=== PATIENT | male | born 1960 | race Caucasian/White ===

== ENCOUNTER 2022-04-08 01:16 | Emergency (ER) | payer SELFPAY ==
[~2022-04-08] VITALS: Ht 182.9 cm; Wt 52.1 kg
[2022-04-08 01:19] VITALS: BP 160/64
== END 2022-04-08 07:00 | disposition left against medical advice (07) ==
LOC: M ED 01:16
DX: Z53.21 Procedure and treatment not carried out due to patient leaving prior to being seen by health care provider (principal)

== ENCOUNTER → 2022-11-01 | Outpatient (CLI) | payer OTHER | LOC: M RAD 11:36 | PROVIDERS: ATTEND Physician Assistant Medical | DX: R80.9 Proteinuria, unspecified (principal); J44.9 Chronic obstructive pulmonary disease, unspecified; F17.210 Nicotine dependence, cigarettes, uncomplicated; R91.1 Solitary pulmonary nodule; N28.1 Cyst of kidney, acquired ==

== ENCOUNTER 2023-03-18 10:18 | Day surgery (SDC) | payer OTHER ==
[~2023-03-18] VITALS: Ht 182.9 cm; Wt 54.0 kg
[~2023-03-18 10:18] MED LIST: NS 1,000 ML IV ONE
[2023-03-18] MEDS ORDERED: LISI5TAB11 PO (10:58)
[2023-03-18] MEDS ORDERED: HYDR-3490 PO (10:58)
[2023-03-18] MEDS ORDERED: ROPI4TAB3 PO (10:58)
[2023-03-18] MEDS ORDERED: ALBU6.7H6 INH (10:58)
[2023-03-18] MEDS ORDERED: LIDOCAINE 2% 100MG/5ML SDV (FOR ANES.) As Ordered ONE (11:48)
[2023-03-18] MEDS ORDERED: propofoL 200 MG/20 ML VIAL As Ordered ONE ×3 (11:48→12:25)
[2023-03-18 13:03] VITALS: BP 122/68
== END 2023-03-18 13:09 | disposition home or self-care (01) ==
LOC: M OPP 10:18
PROVIDERS: ATTEND Internal Medicine Gastroenterology
DX: K57.30 Diverticulosis of large intestine without perforation or abscess without bleeding (principal); K64.4 Residual hemorrhoidal skin tags; K64.8 Other hemorrhoids; D50.9 Iron deficiency anemia, unspecified; K21.00 Gastro-esophageal reflux disease with esophagitis, without bleeding; K25.9 Gastric ulcer, unspecified as acute or chronic, without hemorrhage or perforation; K29.50 Unspecified chronic gastritis without bleeding; K57.10 Diverticulosis of small intestine without perforation or abscess without bleeding

== ENCOUNTER → 2023-12-02 | Outpatient (CLI) | payer OTHER ==
[~2023-12-02] MED LIST changes: +ALBU6.7H6 INH; +CYCL5TAB PO; +HYDR-3490 PO; +LISI5TAB11 PO; -NS 1,000 ML IV ONE; +PANT40TA29 PO; +ROPI4TAB36 PO
[2023-12-02 11:45] LABS: BILIRUBIN,DIRECT 0.2 MG/DL (<0.4); BILIRUBIN,TOTAL 0.6 MG/DL (0.3-1.2); TOTAL PROTEIN 6.9 G/DL (5.7-8.2)
[2023-12-02 11:47] LABS: FOLATE 9.3 NG/ML (>5.4)
== END ==
LOC: M LAB 10:25
PROVIDERS: ATTEND Internal Medicine Gastroenterology
DX: K29.50 Unspecified chronic gastritis without bleeding (principal)

== ENCOUNTER 2023-12-15 12:50 | Day surgery (SDC) | payer OTHER ==
[~2023-12-15] VITALS: Ht 15.2 cm; Wt 59.2 kg
[~2023-12-15 12:50] MED LIST changes: +NS 1,000 ML IV ONE
[2023-12-15] MEDS ORDERED: ALBUTEROL SULFATE 2.5MG/0.5ML INH NEB SOLN INH STA (15:07)
[2023-12-15] MEDS ORDERED: fentaNYL 100 MCG/2 ML INJECTION As Ordered ONE (15:23)
[2023-12-15] MEDS ORDERED: LIDOCAINE 2% 100MG/5ML SDV (FOR ANES.) As Ordered ONE (15:23)
[2023-12-15] MEDS ORDERED: propofoL 200 MG/20 ML VIAL As Ordered ONE (15:23)
[2023-12-15 15:55] VITALS: TEMP 97.4
[2023-12-15 16:11] VITALS: BP 164/82; O2SAT 100
== END 2023-12-15 16:46 | disposition home or self-care (01) ==
LOC: M OPP 12:50
PROVIDERS: ATTEND Internal Medicine Gastroenterology
DX: K21.00 Gastro-esophageal reflux disease with esophagitis, without bleeding (principal); K31.89 Other diseases of stomach and duodenum; K29.70 Gastritis, unspecified, without bleeding; F17.200 Nicotine dependence, unspecified, uncomplicated; Z79.51 Long term (current) use of inhaled steroids; Z79.891 Long term (current) use of opiate analgesic; Z79.899 Other long term (current) drug therapy
CPT/HCPCS: 43239; 88305; J3010

== ENCOUNTER → 2024-02-04 | Outpatient (CLI) | payer OTHER ==
[~2024-02-04] MED LIST changes: +ISOVUE-370 76% 100ML VIAL As Ordered ONE; -NS 1,000 ML IV ONE
== END ==
LOC: M RAD 11:59
PROVIDERS: ATTEND Nurse Practitioner Family
DX: R31.1 Benign essential microscopic hematuria (principal)
CPT/HCPCS: 74178; Q9967

== ENCOUNTER 2024-05-01 16:51 | Emergency (ER) | payer OTHER ==
[~2024-05-01] VITALS: Ht 182.9 cm; Wt 55.9 kg
[~2024-05-01 16:51] MED LIST changes: -ISOVUE-370 76% 100ML VIAL As Ordered ONE
[2024-05-01] MEDS: ONDANSETRON 4MG 2ML VIAL IV ONE (18:26)
[2024-05-01] MEDS: MORPHINE 4 MG/ML 1ML VIAL IV ONE (18:27)
[2024-05-01] MEDS ORDERED: MIRA3350 PO (19:16)
[2024-05-01] MEDS ORDERED: PERC5TAB12 PO (19:16)
[2024-05-01 19:20] VITALS: BP 141/66; TEMP 97.6; O2SAT 97
[2024-05-01] MEDS: OXYCODONE/APAP 5MG/325MG(HOME DOSE PACK) PO ONE (19:20)
== END 2024-05-01 19:37 | disposition home or self-care (01) ==
LOC: M ED 16:51
DX: S42.212A Unspecified displaced fracture of surgical neck of left humerus, initial encounter for closed fracture (principal); Y92.019 Unspecified place in single-family (private) house as the place of occurrence of the external cause; Y93.9 Activity, unspecified; Y99.9 Unspecified external cause status; W11.XXXA Fall on and from ladder, initial encounter; I10 Essential (primary) hypertension; J44.9 Chronic obstructive pulmonary disease, unspecified; F17.210 Nicotine dependence, cigarettes, uncomplicated; Z79.51 Long term (current) use of inhaled steroids; Z79.899 Other long term (current) drug therapy
CPT/HCPCS: 71046; 71100; 73030; 73200; 96374; 96375; 99284; J2405

== ENCOUNTER → 2024-06-14 | Outpatient (CLI) | payer OTHER ==
[~2024-06-14] MED LIST changes: +MIRA3350 PO; +PERC5TAB12 PO
== END ==
LOC: M SOG 07:52
PROVIDERS: ATTEND Orthopaedic Surgery
DX: S42.212A Unspecified displaced fracture of surgical neck of left humerus, initial encounter for closed fracture (principal); W18.30XA Fall on same level, unspecified, initial encounter; Y92.009 Unspecified place in unspecified non-institutional (private) residence as the place of occurrence of the external cause

== ENCOUNTER → 2024-07-16 | Outpatient (CLI) | payer OTHER | LOC: M RAD 06:42 | PROVIDERS: ATTEND Orthopaedic Surgery | DX: S42.212P Unspecified displaced fracture of surgical neck of left humerus, subsequent encounter for fracture with malunion (principal) ==

== ENCOUNTER → 2024-07-21 | Outpatient (CLI) | payer OTHER | LOC: M SOG 07:51 | PROVIDERS: ATTEND Orthopaedic Surgery | DX: S42.212P Unspecified displaced fracture of surgical neck of left humerus, subsequent encounter for fracture with malunion (principal) ==

== ENCOUNTER → 2024-09-01 | Outpatient (CLI) | payer OTHER | LOC: M SOG 09:35 | PROVIDERS: ATTEND Orthopaedic Surgery | DX: S42.212P Unspecified displaced fracture of surgical neck of left humerus, subsequent encounter for fracture with malunion (principal) ==

== ENCOUNTER 2025-09-03 22:16 | Emergency (ER) | payer OTHER, MEDICARE ==
[~2025-09-03] VITALS: Ht 182.9 cm; Wt 55.4 kg
[~2025-09-03 22:16] MED LIST changes: -CYCL5TAB PO; +CYCL5TAB4 PO
[2025-09-03 22:34] VITALS: BP 172/77; TEMP 96.5; O2SAT 98
[2025-09-03 23:37] LABS: BASO # 0.1 10^3/uL (0.0-0.2); BASO % 1.5 % (0.0-1.0); EOS # 0.1 10^3/uL (0.0-0.5); EOS % 2.2 % (0.0-3.0); LYMPH # 1.5 10^3/uL (1.5-5.0); LYMPH % 25.9 % (24.0-44.0); MONO # 0.7 10^3/uL (0.0-0.8); MONO % 11.5 % (2.0-8.0); NEUTROPHILS # 3.4 10^3/uL (1.5-8.5); NEUTROPHILS % 58.6 % (36.0-66.0); PLATELET COUNT, AUTOMATED 144 10^3/uL (150-450)
[2025-09-03 23:46] LABS: ERYTHROCYTE SEDIMENTATION RATE 29 mm/hr (0-20)
[2025-09-03 23:57] LABS: C REACTIVE PROTEIN QUANTITATIV 0.81 MG/DL (<1.0); CALCIUM LEVEL 9.0 MG/DL (8.3-10.6); CARBON DIOXIDE LEVEL 27 MMOL/L (20-31); CHLORIDE LEVEL 103 MMOL/L (98-107); CREATININE FOR GFR 0.70 MG/DL (0.70-1.30); GLOMERULAR FILTRATION RATE > 90.0 (>49); POTASSIUM SERUM 4.5 MMOL/L (3.5-5.1); SODIUM LEVEL 142 MMOL/L (136-145)
== END 2025-09-04 03:15 | disposition left against medical advice (07) ==
LOC: M ED 22:16
DX: Z53.21 Procedure and treatment not carried out due to patient leaving prior to being seen by health care provider (principal)

== ENCOUNTER → 2025-09-15 | Outpatient (CLI) | payer OTHER, MEDICARE ==
[~2025-09-15] MED LIST changes: +MUCI1LIQ3 PO; +NICO14DI6 TOP; +OLAN1TAB16 PO; +ONDA-282 PO
== END ==
LOC: M ONCR 15:13
PROVIDERS: ATTEND General Practice
DX: C13.8 Malignant neoplasm of overlapping sites of hypopharynx (principal); F41.9 Anxiety disorder, unspecified; R11.0 Nausea; Z79.899 Other long term (current) drug therapy; Z80.6 Family history of leukemia; Z87.891 Personal history of nicotine dependence; Z90.02 Acquired absence of larynx
CPT/HCPCS: 31575; G0463

== ENCOUNTER 2025-10-18 14:01 | Outpatient (RCR) | payer OTHER, MEDICARE ==
[~2025-10-18 14:01] MED LIST changes: +NICO4GUM8 PO
[2025-10-24] MEDS ORDERED: LIDO100S29 SSP (11:41)
== END 2025-10-23 ==
LOC: M ONCR 14:01
PROVIDERS: ATTEND General Practice
DX: Z51.0 Encounter for antineoplastic radiation therapy (principal); C13.8 Malignant neoplasm of overlapping sites of hypopharynx

== ENCOUNTER → 2025-11-07 | Outpatient (CLI) | payer OTHER, MEDICARE ==
[~2025-11-07] MED LIST changes: +AZIT-12 PO; +LIDO100S29 SSP; +LIDO30CR18 TOP; +MOME0.1C3 TOP; +OXYC-517 PO; +OXYC1SOL3 PO
[2025-11-07] MEDS: NS (Normal Saline) 0.9% 1,000 ML IV ONE (11:58)
== END ==
LOC: M ONCR 11:35
PROVIDERS: ATTEND General Practice
DX: E86.0 Dehydration (principal); Z92.3 Personal history of irradiation
CPT/HCPCS: 96360; J1100

== ENCOUNTER 2025-11-21 10:58 | Outpatient (RCR) | payer OTHER, MEDICARE ==
[~2025-11-21 10:58] MED LIST changes: -AZIT-12 PO; -MOME0.1C3 TOP
[2025-11-21] MEDS ORDERED: OXYC-517 PO ×2 (11:58→13:59)
[2025-11-21] MEDS ORDERED: AZIT-12 PO (11:58)
[2025-11-21] MEDS ORDERED: MOME0.1C3 TOP (11:58)
[2025-11-21] MEDS ORDERED: OXYC1SOL3 PO ×2 (15:07→15:55)
[2025-11-23] MEDS ORDERED: OXYC1SOL3 PO (16:25)
== END 2025-11-23 ==
LOC: M ONCR 10:58
PROVIDERS: ATTEND General Practice
DX: Z51.0 Encounter for antineoplastic radiation therapy (principal); C13.8 Malignant neoplasm of overlapping sites of hypopharynx
CPT/HCPCS: 77336; 77386; G0463